=== PATIENT | female | born 1990 | race Caucasian/White ===

== ENCOUNTER 2016-11-04 15:30 | Emergency (ER) | payer OTHER ==
--- NOTE | ~2016-11-04 | CR63 ---
[facility] A Service of [facility] & [facility] RADIOLOGY TEXT RESULTS PATIENT: LEXI COSBY LOCATION: [facility] : [birth year] UNIT #: [id number] AGE: [address]: Patrick Collins MD SEX: F ORDER DR: [id number] [facility] [address] [place], [place] [address] [id number] MR#: [id number] Acc #: [id number] NAME: LEXI COSBY : 1990 SEX: F STUDY DATE/TIME: 11/04/2016 16:00 UNIT: [facility] ROOM: STUDY DESCRIPTION: CR Chest 2 View Attending Physician: Chance Collins M.D. Ordering Physician: Er [facility]icians Primary Care Physician: No Primary Care Physician MEDICAL IMAGING REPORT This report is preliminary unless electronic signature is present EXAM PA and lateral chest 11/04/2016 INDICATIONS 25-year-old female with coughing up blood today and chest pain. COMPARISON 09/08/2011 FINDINGS The lungs are well expanded and clear. Heart size is normal. The visualized osseous structures are unremarkable. IMPRESSION Negative chest. Dictated by... Kayden Wright M.D. THIS IS AN ELECTRONICALLY VERIFIED REPORT Kayden Wright M.D. at 11/05/2016 9:04 AM Gina TD: 11/04/2016 17:56 JOB #: [id number] MEDICAL IMAGING REPORT Page 1 of 1 COPY
[~2016-11-04 15:30] MED LIST: ALBUTEROL17 GM INH; BACTRIM DS TABL1 TA2 PO; FLEXERIL PO; IBUPROFEN PO; IBUPROFEN600 MG PO; IBUPROFEN800 MG PO; KEFLEX500 M1 PO; LORATADINE PO; NO MEDICATIONS; PHENERGAN DM1 ML PO; PREDNISONE PO; ZITHROMAX1 G/PKT PO
== END 2016-11-04 18:02 | disposition left against medical advice (07) ==
LOC: CED 15:30
DX: J20.9 Acute bronchitis, unspecified (principal); Z79.899 Other long term (current) drug therapy; F17.210 Nicotine dependence, cigarettes, uncomplicated
CPT/HCPCS: 71020; 99283

== ENCOUNTER 2016-12-25 21:00 | Inpatient (IN) | payer OTHER ==
--- NOTE | ~2016-12-25 | PA ---
Unit #: [id number] #: [id number] Patient: LEXI COSBY [id number] [place] [address] [id number] Anastasia MR#: [id number] NAME: LEXI COSBY. ROOM: P182 Age: 26 Sex: F Admission Date: 12/27/2016 : 1990 Date of Assessment: 12/27/2016 Attending Physician: Hammad Ortiz M.D. Admitting Physician: Hammad Ortiz M.D. Primary Care Physician: Primary Care Physician No PSYCHIATRIC ASSESSMENT IDENTIFYING INFORMATION The patient is a 26-year-old single white female admitted with relapse of heroin use. CHIEF COMPLAINT I relapsed. INFORMANT The patient, reliability is good. HISTORY OF PRESENT ILLNESS The patient is a 26-year-old white female last admitted to this facility in May of 2016 for heroin dependence. The patient reports that she maintains sobriety for approximately five to six months but then began using once again. The patient reports intravenous abuse of heroin. She denies abuse of other psychoactive substances. The patient currently lives with her grandparents. She is not presently employed. She previously worked at [employer]. She was reporting positive suicidal ideation without specific plan at the time of admission and continues to endorse positive suicidal ideation in today's interview without specific plan. For more complete history of present illness please refer to previous dictated notes. PAST PSYCHIATRIC HISTORY Reviewed no changes. PAST MEDICAL HISTORY Reviewed no changes. MEDICATIONS None. ALLERGIES None. FAMILY HISTORY Reviewed no changes SOCIAL HISTORY Reviewed no changes. MENTAL STATUS EXAMINATION At this time reveals the patient to be an obese white female appearing her Unit #: [id number] #: [id number] Patient: LEXI COSBY stated age. She is in no apparent physical distress at the time of examination. She is in moderate physical distress related to opioid withdrawal. She is awake, alert, and oriented in all spheres. Her mood is dysphoric. Her affect constricted. Speech is generally relevant and coherent. There are no gross deficits in memory or cognition noted. Intelligence is judged to be in the average range based on fund of knowledge. The patient is cooperative throughout the interview. She continues to endorse positive suicidal ideation. She denies homicidal ideation. She denies any psychotic symptoms. Her judgment and insight appear to be intact. ASSETS AND LIABILITIES ASSETS: Motivation for change. LIABILITIES: Lack of resources. ADMITTING DIAGNOSES 1. Opioid use disorder 2. Obesity. PSYCHIATRIC PLAN/TREATMENT GOALS The patient is hospitalized for safety and stabilization. Suicidal precautions are in place and the patient has been placed on a routine detoxification protocol for opioids. I will ask the social services manager to see the patient regarding post discharge treatment options ESTIMATED LENGTH OF STAY Five days. Dictated by... Hammad Ortiz M.D. PATRICA/eloise TD: 12/28/2016 02:04 JOB #: [id number] PSYCHIATRIC ASSESSMENT Page 1 of 1 X Hammad Ortiz MD X PSYCHIATRIC ASSESSMENT
--- NOTE | ~2016-12-25 | HP ---
Unit #: [id number] #: [id number] Patient: LEXI COSBY [id number] [place] [address] [id number] MR#: [id number] NAME: LEXI COSBY. ROOM: P182 Age: 26 Sex: F Admission Date: 12/27/2016 : 1990 Attending Physician: Hammad Ortiz M.D. Admitting Physician: Hammad Ortiz M.D. Primary Care Physician: Primary Care Physician No HISTORY AND PHYSICAL HISTORY OF PRESENT ILLNESS Lexi is a 26 year old admitted to [facility] because of her drug use. She has had other admissions to this facility for the same. PAST MEDICAL HISTORY Long history of opioid abuse to include IV heroin PAST SURGICAL HISTORY Nothing reported. ALLERGIES No known drug allergies. SOCIAL HISTORY Smokes one pack per day. Denies alcohol. Admits to a long history of opioid abuse to include IV heroin. FAMILY HISTORY Medically noncontributory. REVIEW OF SYSTEMS CONSTITUTIONAL: No fever or chills. HEENT: Denies any sore throat, ear pain or runny nose. CARDIOVASCULAR: Denies chest pain, irregular heart rhythm or palpitations. CHEST: Denies shortness of breath or cough. No hemoptysis. GASTROINTESTINAL: Denies nausea, vomiting, diarrhea or chronic constipation. ENDOCRINE: Denies history of increased thirst or urination. No recent significant weight loss or gain. GENITOURINARY: Denies dysuria, frequency, or hematuria. SKIN: Denies any rashes. HEMATOLOGIC: Denies history of increased bleeding or bruising. MUSCULOSKELETAL: Denies any hot, swollen joints. No generalized muscle pain. NEUROLOGIC: Denies problems with vision or speech. No frequent, severe headaches. No numbness, tingling or weakness in any extremities. Denies loss of bladder or bowel control. CURRENT MEDICATIONS Detox protocol PHYSICAL EXAMINATION Unit #: [id number] #: [id number] Patient: LEXI COSBY GENERAL: Alert, well-nourished, in no apparent distress. VITAL SIGNS: Blood pressure 136/80, heart rate 80, respirations 16, temperature 98.6. WEIGHT: 240 pounds. HEIGHT: 5'6". SKIN: Warm and dry without rash or lesion. HEENT: Normocephalic. TMs not viewed. Oral and nasal passages clear. Conjunctivae clear. Pupils equal, round and reactive to light and accommodation. Extraocular movements intact. NECK: Supple without lymphadenopathy or thyromegaly. HEART: Regular rate and rhythm without murmur. LUNGS: Clear. ABDOMEN: Soft, nontender. : Not done. EXTREMITIES: No evidence of cyanosis, clubbing or edema. Moves all extremities without focal deficit. NEUROLOGICAL: Grossly within normal limits. Cranial Nerves: II: Visual hood are intact. III, IV AND : Extraocular movements are intact. Pupils are equal, round and reactive to light. V: Facial sensation is grossly normal. VII: Facial movements and expression are normal. VIII: Auditory acuity grossly intact. IX, X: Uvula is midline. Phonation is normal. XI: Patient shrugs shoulders and turns head normally. XII: Tongue protrudes in the midline. Sensory and Motor Function: Sensory and motor sensation is grossly normal. Motor: moves all extremities well. Coordination: Gait is normal. Deep Tendon Reflexes: Intact. IMPRESSION Psychiatric admission RECOMMENDATIONS PSYCHIATRIC: Per psychiatrist. MEDICAL: I see no contraindications to participating in facility's activities. MEDICAL PROGNOSIS Good. MEDICAL CONDITION Stable. Dictated by... Jossie Flores PBolaAChristian. for Ingrid Romero/eloise TD: 12/28/2016 05:02 JOB #: [id number] Unit #: [id number] #: [id number] Patient: LEXI COSBY HISTORY AND PHYSICAL Page 1 of 1 X Jossie Flores HISTORY AND PHYSICAL
--- NOTE | ~2016-12-25 | DS ---
Unit #: [id number] #: [id number] Patient: LEXI COSBY [id number] [place] [address] [id number] I MR#: [id number] NAME: LEXI COSBY. ROOM: 82 Age: 26 Sex: F Admission Date: 12/27/2016 : 1990 Discharge Date: 12/29/2016 Attending Physician: Hammad Ortiz M.D. Primary Care Physician: Primary Care Physician No DISCHARGE SUMMARY REASON FOR ADMISSION The patient is a 26-year-old white female admitted to the [facility] unit with a recent relapse of heroin use. HOSPITAL COURSE The patient was placed on the [facility] unit and placed on suicide precautions. Routine detoxification protocol for opioids was put in place. The patient exhibited little in the way of signs or symptoms of withdrawal and when seen on 12/28 and requested discharge citing a need to appear in court the following day, it was so ordered. DISCHARGE DIAGNOSIS Opioid use disorder. FOLLOWUP CARE Followup to take place through the auspices of the intensive outpatient program provided by this facility. DISCHARGE MEDICATIONS The patient is discharged on no psychotropic or other medications. PROGNOSIS Considered fair. Dictated by... Hammad Ortiz M.D. CB/sherice TD: 12/28/2016 15:21 JOB #: [id number] Unit #: [id number] #: [id number] Patient: LEXI COSBY DISCHARGE SUMMARY Page 1 of 1 X Hammad Ortiz MD X DISCHARGE SUMMARY
[2016-12-27 10:13] LABS: BASOPHIL% 0.7 % (0-2.5); EOSINOPHIL# 0.2 X10e3 (0-0.7); EOSINOPHIL% 3.3 % (0.0-7.0); HEMATOCRIT 43.4 % (35.0-45.0); HEMOGLOBIN 14.4 gm/dL (12.0-16.0); LYMPHOCYTE# 1.9 X10e3 (1.0-3.5); LYMPHOCYTE% 28.2 % (17.0-45.0); MEAN CELL VOLUME 90.5 FL (83-96); MEAN CORPUSCULAR HEMOGLOBIN 29.9 PG (28-34); MEAN CORPUSCULAR HGB CONC 33.1 g/dL (30-36); MEAN PLATELET VOLUME 11.9 FL (6.5-11.5); MONOCYTE# 0.6 X10e3 (0-1.0); MONOCYTE% 9.5 % (3.0-12.0); NEUTROPHIL# 3.9 X10e3 (1.5-7.1); NEUTROPHIL% 58.3 % (40-75); RED BLOOD COUNT 4.79 X10e (3.90-5.30); RED CELL DISTRIBUTION WIDTH 12.4 % (11.0-15.5); WHITE BLOOD COUNT 6.7 X10e3 (4.0-10.5)
[2016-12-27 10:17] LABS: URINE APPEARANCE CLOUDY; URINE BLOOD NEG (NEG); URINE COLOR DK YELLOW; URINE GLUCOSE NEG (NEG); URINE KETONE TRACE (NEG); URINE LEUKOCYTE ESTERASE TRACE (NEG); URINE NITRATE NEG (NEG); URINE PH 6.5 (5-8); URINE PROTEIN NEG (NEG)
[2016-12-27 10:22] LABS: URINE BACTERIA AUWI 1+ (NEGATIVE); URINE SQUAMOUS EPITHELIAL CELL FEW /[HPF]
[2016-12-27 10:23] LABS: THYROID STIMULATING HORMONE 0.21 uIU/ml (0.34-5.60)
[2016-12-27 10:29] LABS: ALBUMIN SERUM 4.2 g/dL (3.5-5.0); BILIRUBIN,TOTAL 1.1 mg/dL (0.2-2.0); CALCIUM SERUM 9.2 mg/dL (8.4-10.2); CREATININE SERUM 0.5 mg/dL (0.6-1.4); GLOM FILT RATE Estimated 135.5 mL/min (>60); POTASSIUM 3.6 mmol/L (3.5-5.1); PROTEIN TOTAL SERUM 7.3 g/dL (6.0-8.3)
[2016-12-27 10:33] LABS: FREE THYROXIN (T4) 0.83 ng/dL (0.58-1.64)
[2016-12-27 10:51] LABS: URINE BILIRUBIN NEG (NEG)
[2016-12-27 10:52] LABS: URINE MUCUS PRESENT
[2016-12-27 11:01] LABS: DIFF IND NO; PLATELET COUNT 168 X10e3 (140-420)
[2016-12-27 11:11] LABS: AMPHETAMINE NEG (NEG); BARBITURATES NEG (NEG); BENZODIAZEPINES NEG (NEG); COCAINE NEG (NEG); MARIJUANA NEG (NEG); OPIATES POS (NEG); TRICYCLIC ANTIDEPRESSANTS NEG (NEG); U METHADONE NEG (NEG)
[2017-01-01 15:23] LABS: HA AB IGM (HEPPAN) Nonreactive (()); HB CORE AB IGM (HEPPAN) Nonreactive (Nonreactive); HB S AG (HEPPAN) Nonreactive (Nonreactive); HEP C AB (HEPPAN) Reactive (Nonreactive)
== END 2016-12-29 11:10 | disposition home or self-care (01) | DRG 897 ==
LOC: P1E 12-27 01:04 → P1S 12-27 01:04 → P1E 12-27 15:43
PROVIDERS: Specialist
PROC: HZ2ZZZZ Detoxification Services for Substance Abuse Treatment (ICD-10-PCS; principal; 2016-12-27)
DX: F11.10 Opioid abuse, uncomplicated (principal); E66.9 Obesity, unspecified; Z68.38 Body mass index [BMI] 38.0-38.9, adult; F17.210 Nicotine dependence, cigarettes, uncomplicated
CPT/HCPCS: 80053; 80074; 80307; 81003; 84439; 84443; 84703; 85025; 86592; 87522; 87806; J2550